=== PATIENT | female | born 1960 | race Caucasian/White ===

== ENCOUNTER 2019-03-06 01:38 | Emergency (ER) | payer BC, OTHER ==
[~2019-03-06] VITALS: Ht 167.6 cm; Wt 95.7 kg
[2019-03-06 01:17] LABS: HEMATOCRIT 42.7 % (36.0-47.0); HEMOGLOBIN 13.4 g/dl (12.0-15.5); MEAN CORPUSCULAR HEMOGLOBIN 29.3 pg (27.0-33.0); MEAN CORPUSCULAR HGB CONC 31.4 g/dl (32.0-36.5); MEAN CORPUSCULAR VOLUME 93.2 fl (80.0-96.0); PLATELET COUNT, AUTOMATED 261 10^3/uL (150-450); RED BLOOD COUNT 4.58 10^6/uL (4.00-5.40)
[~2019-03-06 01:38] MED LIST: KETOROLAC 30 MG/ML VIAL (J1885) IV ONE; NS 1,000 ML IV ONE; ONDANSETRON 4MG/2ML VIAL (J2405) IV ONE
[2019-03-06] MEDS ORDERED: ISOVUE-370 76% 100ML VIAL (Q9967) As Ordered ONE (01:48)
[2019-03-06 02:23] LABS: BILIRUBIN,DIRECT 0.2 MG/DL (0.0-0.2); BILIRUBIN,TOTAL 0.7 MG/DL (0.2-1.0); CALCIUM LEVEL 8.7 MG/DL (8.5-10.1); CREATININE FOR GFR 1.16 MG/DL (0.55-1.30); GLOMERULAR FILTRATION RATE 51.1 (>51); POTASSIUM SERUM 3.4 MEQ/L (3.5-5.1)
--- NOTE | 2019-03-06 03:02 | REPVR ---
PROCEDURE INFORMATION: Exam: CT Abdomen And Pelvis With Contrast Exam date and time: 03/06/2019 2:38 AM Clinical history: 58 years old, female; Abdominal pain; Flank; Left; Additional info: Left flank/abdomen pain TECHNIQUE: Imaging protocol: Computed tomography of the abdomen and pelvis with intravenous contrast. Radiation optimization: All CT scans at this facility use at least one of these dose optimization techniques: automated exposure control; mA and/or kV adjustment per patient size (includes targeted exams where dose is matched to clinical indication); or iterative reconstruction. Contrast material: ISOVUE 370; Contrast volume: 100 ml; Contrast route: IV; COMPARISON: US PELVIC NON-OB COMPLETE 11/29/2012 1:29 AM FINDINGS: Lungs: Linear atelectasis or scarring in the right lower lobe. Bibasilar dependent atelectasis. Mediastinum: Small hiatal hernia. Liver: Mild hepatomegaly and steatosis. Gallbladder and bile ducts: Status post cholecystectomy. Mild intra-and extrahepatic biliary ductal dilatation to the level of an abrupt cut off near the ampulla. Pancreas: Normal. No ductal dilation. Spleen: Complex cystic lesions in the spleen measuring up to 4 cm in diameter. Adrenals: Normal. No mass. Kidneys and ureters: Mild left hydroureteronephrosis to the level of 2 punctate calculi in the left ureterovesicular junction. Extensive stranding of the left perinephric and periureteral fat. Stomach and bowel: Diverticulosis of the colon. No evidence of acute diverticulitis. Appendix: No evidence of appendicitis. Intraperitoneal space: Unremarkable. No free air. No significant fluid collection. Vasculature: Unremarkable. No abdominal aortic aneurysm. Lymph nodes: Unremarkable. No enlarged lymph nodes. Bladder: Unremarkable as visualized. Reproductive: Unremarkable as visualized. Bones/joints: Unremarkable. No acute fracture. Soft tissues: Spiculated soft tissue lesion in the medial left breast measuring approximately 2 cm in diameter. IMPRESSION: 1. Mild left hydroureteronephrosis to the level of 2 punctate calculi in the left ureterovesicular junction. 2. Spiculated soft tissue lesion in the medial left breast measuring approximately 2 cm in diameter. Correlation with mammography and/or breast sonography is suggested. Electronically signed by: William Cano On 03/06/2019 03:01:36 AM
[2019-03-06] MEDS ORDERED: TAMSULOSIN 0.4 MG CAP PO ONE (03:30)
[2019-03-06] MEDS ORDERED: FLOM0.4C39 PO (04:34)
[2019-03-06] MEDS ORDERED: OXYCODONE/APAP 5MG/325MG(BULK FOR ED) 1 TABLET PO ONE (04:45)
[2019-03-06 04:57] VITALS: BP 149/70
== END 2019-03-06 04:58 | disposition home or self-care (01) ==
LOC: M ED 01:38
DX: N20.1 Calculus of ureter (principal); N13.39 Other hydronephrosis; N63.0 Unspecified lump in unspecified breast; R03.0 Elevated blood-pressure reading, without diagnosis of hypertension; R11.10 Vomiting, unspecified
CPT/HCPCS: 74177; 80048; 80076; 81001; 83690; 85025; 87086; 96361; 96374; 96375; 99284; J1885; J2405; Q9967

== ENCOUNTER 2023-03-11 13:31 | Inpatient (IN) | payer OTHER ==
[~2023-03-11] VITALS: Ht 167.6 cm; Wt 65.5 kg
[~2023-03-11 13:31] MED LIST changes: +FLOM0.4C39 PO; -KETOROLAC 30 MG/ML VIAL (J1885) IV ONE; -NS 1,000 ML IV ONE; -ONDANSETRON 4MG/2ML VIAL (J2405) IV ONE
[2023-03-11 14:55] LABS: BASO % 0.6 % (0.0-1.0); EOS % 0.3 % (0.0-3.0); HEMATOCRIT 36.4 % (36.0-47.0); HEMOGLOBIN 11.1 g/dl (12.0-15.5); LYMPH # 0.9 10^3/uL (1.5-5.0); LYMPH % 13.4 % (24.0-44.0); MEAN CORPUSCULAR HEMOGLOBIN 23.7 pg (27.0-33.0); MEAN CORPUSCULAR HGB CONC 30.5 g/dl (32.0-36.5); MEAN CORPUSCULAR VOLUME 77.8 fl (80.0-96.0); MONO # 0.5 10^3/uL (0.0-0.8); MONO % 6.7 % (2.0-8.0); NEUTROPHILS # 5.3 10^3/uL (1.5-8.5); NEUTROPHILS % 77.7 % (36.0-66.0); PLATELET COUNT, AUTOMATED 352 10^3/uL (150-450); RED BLOOD COUNT 4.68 10^6/uL (4.00-5.40); WHITE BLOOD COUNT 6.9 10^3/uL (4.0-10.0)
[2023-03-11 15:09] LABS: PARTIAL THROMBOPLASTIN TIME 28.1 SECONDS (24.8-34.2)
[2023-03-11 15:13] LABS: LIPASE 23 U/L (12-53)
[2023-03-11 15:16] LABS: ALBUMIN 3.3 G/DL (3.2-5.2); ALKALINE PHOSPHATASE 194 U/L (46-116); ALT/SGPT 12 U/L (7.0-40); AST/SGOT 83 U/L (<34); BILIRUBIN,DIRECT 0.7 MG/DL (<0.4); BILIRUBIN,TOTAL 1.7 MG/DL (0.3-1.2); TOTAL PROTEIN 6.4 G/DL (5.7-8.2)
[2023-03-11] MEDS ORDERED: ONDANSETRON 4MG 2ML VIAL IV ONE (15:40)
[2023-03-11] MEDS ORDERED: KETOROLAC 30 MG/ML 1ML VIAL IV ONE (15:40)
[2023-03-11] MEDS ORDERED: NS 1,000 ML IV ONE (15:40)
[2023-03-11 15:57] LABS: INR 1.07; PROTHROMBIN TIME 13.6 SECONDS (12.5-14.5)
[2023-03-11 16:03] LABS: ERYTHROCYTE SEDIMENTATION RATE 52 mm/hr (0-30)
[2023-03-11 16:06] LABS: CK-MB VALUE MASS < 1.0 NG/ML (<3.6)
[2023-03-11 16:07] LABS: CPK CREATINE PHOSPHOKINASE 143 U/L (34-145); MB/CK RELATIVE INDEX 0.69 (< OR =4)
[2023-03-11] MEDS ORDERED: ISOVUE-370 76% 100ML VIAL As Ordered ONE (16:09)
[2023-03-11] MEDS ORDERED: POTASSIUM CHLORIDE 10MEQ SR TABLET PO ONE (16:40)
[2023-03-11 16:51] LABS: MAGNESIUM LEVEL 1.7 MG/DL (1.8-2.4)
[2023-03-11] MEDS ORDERED: KCL 10MEQ/100ML SWI (KRUN) 10 MEQ in IV 1 EA IV ONE (17:00)
[2023-03-11 17:02] LABS: RSV AMPLIFICATION NEGATIVE (NEGATIVE)
[2023-03-11] MEDS ORDERED: MAALOX 30 ML SUSP *UDC PO PRN (18:25)
[2023-03-11] MEDS ORDERED: MED REC IN PROGRESS XX SCH (18:25)
[2023-03-11] MEDS ORDERED: MOM 30ML SUSPENSION UDC PO PRN (18:25)
[2023-03-11] MEDS ORDERED: HOME MED LIST COMPLETE! XX SCH (18:45)
[2023-03-11 19:18] LABS: BLOOD UREA NITROGEN 11 MG/DL (9-23); CALCIUM LEVEL 8.1 MG/DL (8.3-10.6); CARBON DIOXIDE LEVEL 29 MMOL/L (20-31); CHLORIDE LEVEL 101 MMOL/L (98-107); CREATININE FOR GFR 0.63 MG/DL (0.55-1.30); GLOMERULAR FILTRATION RATE > 60.0 (>45); GLUCOSE, FASTING 75 MG/DL (74-106); PHOSPHORUS LEVEL 3.4 MG/DL (2.4-5.1); POTASSIUM SERUM 3.4 MMOL/L (3.5-5.1); SODIUM LEVEL 137 MMOL/L (136-145)
[2023-03-11 20:23] VITALS: BP 154/91; TEMP 98.8; O2SAT 88
[2023-03-11] MEDS: NS 1,000 ML IV SCH (20:57)
[2023-03-11] MEDS ORDERED: MAG SULF 1GM/100ML (MAG RUN) 1 GM in IV 1 EA IV ONE (21:00)
[2023-03-11] MEDS ORDERED: KETOROLAC 30 MG/ML 1ML VIAL IV PRN (21:00)
[2023-03-11] MEDS: MORPHINE 4 MG/ML 1ML VIAL IV PRN (21:18)
[2023-03-11] MEDS: PROMETHAZINE 25MG/ML 1ML VIAL IV PRN (21:19)
[2023-03-11 22:04] VITALS: O2SAT 2
[2023-03-11 22:05] VITALS: O2SAT 96
[2023-03-12 05:00] VITALS: BP 138/75; TEMP 98.6; O2SAT 98
[2023-03-12 06:24] VITALS: O2SAT 86
[2023-03-12 06:30] VITALS: O2SAT 91
[2023-03-12 08:00] VITALS: BP 122/80; TEMP 98.2; O2SAT 98
[2023-03-12] MEDS ORDERED: ENOXAPARIN 30MG/0.3ML SYRINGE (J1650 PER 10MG) SC SCH (09:00)
[2023-03-12 09:23] LABS: BLOOD UREA NITROGEN 9 MG/DL (9-23); CALCIUM LEVEL 8.5 MG/DL (8.3-10.6); CARBON DIOXIDE LEVEL 30 MMOL/L (20-31); CHLORIDE LEVEL 104 MMOL/L (98-107); CREATININE FOR GFR 0.65 MG/DL (0.55-1.30); GLOMERULAR FILTRATION RATE > 60.0 (>45); GLUCOSE, FASTING 80 MG/DL (74-106); POTASSIUM SERUM 3.4 MMOL/L (3.5-5.1); SODIUM LEVEL 144 MMOL/L (136-145)
[2023-03-12] MEDS: NS 1,000 ML IV SCH ×2 (10:40→19:39)
[2023-03-12 14:14] VITALS: BP 135/82; TEMP 98.1; O2SAT 95
[2023-03-12] MEDS ORDERED: KCL 10MEQ/100ML SWI (KRUN) 10 MEQ in IV 1 EA IV ONE (14:45)
[2023-03-12] MEDS ORDERED: INFLUENZA QUADRIVALENT PF VACCINE 0.5ML SYRINGE IM.IMMUN ONE (16:00)
[2023-03-12] MEDS: CEFDINIR 300 MG CAP (OMNICEF) PO SCH (16:40)
[2023-03-12] MEDS ORDERED: ENOXAPARIN 40MG/0.4ML SYRINGE (J1650 PER 10MG) SC SCH (18:00)
[2023-03-12] MEDS: MORPHINE 4 MG/ML 1ML VIAL IV PRN (19:38)
[2023-03-12] MEDS: PROMETHAZINE 25MG/ML 1ML VIAL IV PRN (19:38)
[2023-03-12 19:40] VITALS: BP 143/73; TEMP 99.1; O2SAT 93
[2023-03-13] MEDS: FOLIC ACID 1 MG in NS 50 ML IV SCH (01:31)
[2023-03-13 05:15] VITALS: BP 147/74; TEMP 98.2; O2SAT 92
[2023-03-13 06:19] LABS: BLOOD UREA NITROGEN 8 MG/DL (9-23); CALCIUM LEVEL 8.1 MG/DL (8.3-10.6); CARBON DIOXIDE LEVEL 31 MMOL/L (20-31); CHLORIDE LEVEL 106 MMOL/L (98-107); CREATININE FOR GFR 0.62 MG/DL (0.55-1.30); GLOMERULAR FILTRATION RATE > 60.0 (>45); GLUCOSE, FASTING 93 MG/DL (74-106); MAGNESIUM LEVEL 1.8 MG/DL (1.8-2.4); POTASSIUM SERUM 3.4 MMOL/L (3.5-5.1); SODIUM LEVEL 144 MMOL/L (136-145)
[2023-03-13] MEDS: CEFDINIR 300 MG CAP (OMNICEF) PO SCH (09:16)
[2023-03-13] MEDS: POTASSIUM CHLORIDE 10MEQ SR TABLET PO SCH (09:16)
[2023-03-13] MEDS: MAGNESIUM OXIDE 400MG TAB (MAG-OX) PO SCH ×3 (09:16→19:58)
[2023-03-13 10:07] LABS: HEMATOCRIT 28.6 % (36.0-47.0); HEMOGLOBIN 8.5 g/dl (12.0-15.5); MEAN CORPUSCULAR HEMOGLOBIN 24.6 pg (27.0-33.0); MEAN CORPUSCULAR HGB CONC 29.7 g/dl (32.0-36.5); MEAN CORPUSCULAR VOLUME 82.7 fl (80.0-96.0); PLATELET COUNT, AUTOMATED 232 10^3/uL (150-450); RED BLOOD COUNT 3.46 10^6/uL (4.00-5.40)
[2023-03-13] MEDS: ONDANSETRON 4MG 2ML VIAL IV PRN (12:13)
[2023-03-13 14:00] VITALS: BP 132/73; TEMP 99; O2SAT 91
[2023-03-13] MEDS: ACETAMINOPHEN TAB 650MG DOSE (2X325MG) PO PRN (19:58)
[2023-03-13 20:10] LABS: PERCENT SATURATION 5.9 % (13.2-45.0)
[2023-03-13 20:12] LABS: FERRITIN 52.3 NG/ML (7.3-270.7); FOLATE 3.4 NG/ML (>5.4)
[2023-03-13 21:42] VITALS: BP 131/64; TEMP 97.8; O2SAT 94
[2023-03-13] MEDS ORDERED: FERRIC CARBOXYMALTOSE INJ 750 MG, VIAL MATE ADAPTER 1 EACH in NS 250 ML IV ONE (22:30)
[2023-03-14 05:03] VITALS: BP 159/75; TEMP 97.7; O2SAT 93
[2023-03-14 06:22] LABS: HEMATOCRIT 27.1 % (36.0-47.0); HEMOGLOBIN 8.1 g/dl (12.0-15.5); MEAN CORPUSCULAR HEMOGLOBIN 24.3 pg (27.0-33.0); MEAN CORPUSCULAR HGB CONC 29.9 g/dl (32.0-36.5); MEAN CORPUSCULAR VOLUME 81.1 fl (80.0-96.0); PLATELET COUNT, AUTOMATED 226 10^3/uL (150-450); RED BLOOD COUNT 3.34 10^6/uL (4.00-5.40); WHITE BLOOD COUNT 4.2 10^3/uL (4.0-10.0)
[2023-03-14 06:45] LABS: BLOOD UREA NITROGEN 8 MG/DL (9-23); CALCIUM LEVEL 8.6 MG/DL (8.3-10.6); CARBON DIOXIDE LEVEL 30 MMOL/L (20-31); CHLORIDE LEVEL 107 MMOL/L (98-107); CREATININE FOR GFR 0.57 MG/DL (0.55-1.30); GLOMERULAR FILTRATION RATE > 60.0 (>45); GLUCOSE, FASTING 83 MG/DL (74-106); POTASSIUM SERUM 3.8 MMOL/L (3.5-5.1); SODIUM LEVEL 145 MMOL/L (136-145)
[2023-03-14] MEDS: MAGNESIUM OXIDE 400MG TAB (MAG-OX) PO SCH ×3 (09:27→22:34)
[2023-03-14] MEDS: CEFDINIR 300 MG CAP (OMNICEF) PO SCH (09:27)
[2023-03-14] MEDS: POTASSIUM CHLORIDE 10MEQ SR TABLET PO SCH (09:27)
[2023-03-14 09:40] VITALS: O2SAT 92
[2023-03-14 14:23] VITALS: BP 164/92; TEMP 99.3; O2SAT 88
[2023-03-14 16:06] VITALS: BP 145/69
[2023-03-14 22:00] VITALS: BP 156/74; TEMP 98.2; O2SAT 92
[2023-03-14] MEDS: FOLIC ACID 1 MG in NS 50 ML IV SCH (22:35)
[2023-03-15 05:41] VITALS: BP 147/69; TEMP 97.3; O2SAT 94
[2023-03-15 06:14] LABS: HEMATOCRIT 25.9 % (36.0-47.0); HEMOGLOBIN 7.8 g/dl (12.0-15.5); MEAN CORPUSCULAR HEMOGLOBIN 24.4 pg (27.0-33.0); MEAN CORPUSCULAR HGB CONC 30.1 g/dl (32.0-36.5); MEAN CORPUSCULAR VOLUME 80.9 fl (80.0-96.0); PLATELET COUNT, AUTOMATED 251 10^3/uL (150-450); WHITE BLOOD COUNT 4.1 10^3/uL (4.0-10.0)
[2023-03-15 06:46] LABS: BLOOD UREA NITROGEN 8 MG/DL (9-23); CALCIUM LEVEL 8.5 MG/DL (8.3-10.6); CARBON DIOXIDE LEVEL 31 MMOL/L (20-31); CHLORIDE LEVEL 109 MMOL/L (98-107); CREATININE FOR GFR 0.55 MG/DL (0.55-1.30); GLOMERULAR FILTRATION RATE > 60.0 (>45); GLUCOSE, FASTING 80 MG/DL (74-106); SODIUM LEVEL 148 MMOL/L (136-145)
[2023-03-15] MEDS: CEFDINIR 300 MG CAP (OMNICEF) PO SCH (08:57)
[2023-03-15] MEDS: MAGNESIUM OXIDE 400MG TAB (MAG-OX) PO SCH ×3 (08:57→21:56)
[2023-03-15] MEDS: POTASSIUM CHLORIDE 10MEQ SR TABLET PO SCH (08:57)
[2023-03-15] MEDS: PRENATAL VITAMINS CHEWABLE TABLET PO SCH (08:57)
[2023-03-15 14:52] VITALS: BP 144/70; TEMP 99; O2SAT 88
[2023-03-15 15:01] VITALS: O2SAT 90
[2023-03-15 20:00] VITALS: BP 144/71; TEMP 99; O2SAT 93
[2023-03-15] MEDS: FOLIC ACID 1 MG in NS 50 ML IV SCH (21:56)
[2023-03-16 06:00] VITALS: BP 154/85; TEMP 98.8; O2SAT 91
[2023-03-16 06:39] LABS: HEMATOCRIT 27.4 % (36.0-47.0); HEMOGLOBIN 8.2 g/dl (12.0-15.5); MEAN CORPUSCULAR HEMOGLOBIN 24.4 pg (27.0-33.0); MEAN CORPUSCULAR HGB CONC 29.9 g/dl (32.0-36.5); MEAN CORPUSCULAR VOLUME 81.5 fl (80.0-96.0); PLATELET COUNT, AUTOMATED 254 10^3/uL (150-450); RED BLOOD COUNT 3.36 10^6/uL (4.00-5.40); WHITE BLOOD COUNT 4.4 10^3/uL (4.0-10.0)
[2023-03-16 07:11] LABS: BLOOD UREA NITROGEN 6 MG/DL (9-23); CALCIUM LEVEL 8.6 MG/DL (8.3-10.6); CARBON DIOXIDE LEVEL 29 MMOL/L (20-31); CHLORIDE LEVEL 108 MMOL/L (98-107); CREATININE FOR GFR 0.56 MG/DL (0.55-1.30); GLOMERULAR FILTRATION RATE > 60.0 (>45); GLUCOSE, FASTING 78 MG/DL (74-106); POTASSIUM SERUM 4.4 MMOL/L (3.5-5.1); SODIUM LEVEL 142 MMOL/L (136-145)
[2023-03-16] MEDS ORDERED: IPRATROPIUM 0.5MG/ALBUTEROL 2.5MG INH SOL UD 3ML (DUONEB) NEB PRN (08:40)
[2023-03-16] MEDS: PRENATAL VITAMINS CHEWABLE TABLET PO SCH (11:31)
[2023-03-16] MEDS: MAGNESIUM OXIDE 400MG TAB (MAG-OX) PO SCH ×3 (11:31→20:37)
[2023-03-16] MEDS: POTASSIUM CHLORIDE 10MEQ SR TABLET PO SCH (11:31)
[2023-03-16 14:00] VITALS: BP 143/78; TEMP 98.1; O2SAT 94
[2023-03-16 20:29] VITALS: BP 146/79; TEMP 99; O2SAT 94
[2023-03-16] MEDS: FOLIC ACID 1 MG in NS 50 ML IV SCH (23:44)
[2023-03-17 05:18] VITALS: BP 153/82; TEMP 98.6; O2SAT 96
[2023-03-17 06:07] LABS: HEMATOCRIT 28.5 % (36.0-47.0); HEMOGLOBIN 8.5 g/dl (12.0-15.5); MEAN CORPUSCULAR HEMOGLOBIN 24.1 pg (27.0-33.0); MEAN CORPUSCULAR HGB CONC 29.8 g/dl (32.0-36.5); PLATELET COUNT, AUTOMATED 316 10^3/uL (150-450); RED BLOOD COUNT 3.52 10^6/uL (4.00-5.40); WHITE BLOOD COUNT 4.9 10^3/uL (4.0-10.0)
[2023-03-17 06:42] LABS: BLOOD UREA NITROGEN < 5 MG/DL (9-23); CALCIUM LEVEL 8.6 MG/DL (8.3-10.6); CARBON DIOXIDE LEVEL 27 MMOL/L (20-31); CHLORIDE LEVEL 106 MMOL/L (98-107); CREATININE FOR GFR 0.59 MG/DL (0.55-1.30); GLOMERULAR FILTRATION RATE > 60.0 (>45); GLUCOSE, FASTING 80 MG/DL (74-106); POTASSIUM SERUM 4.4 MMOL/L (3.5-5.1); SODIUM LEVEL 140 MMOL/L (136-145)
[2023-03-17] MEDS: POTASSIUM CHLORIDE 10MEQ SR TABLET PO SCH (08:28)
[2023-03-17] MEDS: PRENATAL VITAMINS CHEWABLE TABLET PO SCH (08:41)
[2023-03-17 09:01] VITALS: BP_SYST 124; BP_SYST 142; BP_DIAS 78; BP_DIAS 83; TEMP 98.2; O2SAT 97
[2023-03-17 14:00] VITALS: BP 155/78; TEMP 98.2; O2SAT 94
[2023-03-17 20:34] VITALS: BP 155/80; TEMP 98.6; O2SAT 98
[2023-03-17] MEDS: ONDANSETRON 4MG 2ML VIAL IV PRN (21:13)
[2023-03-17] MEDS: FOLIC ACID 1 MG in NS 50 ML IV SCH (22:39)
[2023-03-17] MEDS ORDERED: MORPHINE 2 MG/ML 1ML VIAL IV ONE (23:15)
[2023-03-17 23:26] VITALS: O2SAT 96
[2023-03-18 05:09] VITALS: BP 151/83; TEMP 98.8; O2SAT 92
[2023-03-18 06:01] LABS: HEMATOCRIT 28.1 % (36.0-47.0); HEMOGLOBIN 8.5 g/dl (12.0-15.5); MEAN CORPUSCULAR HEMOGLOBIN 24.8 pg (27.0-33.0); MEAN CORPUSCULAR HGB CONC 30.2 g/dl (32.0-36.5); MEAN CORPUSCULAR VOLUME 81.9 fl (80.0-96.0); PLATELET COUNT, AUTOMATED 330 10^3/uL (150-450); RED BLOOD COUNT 3.43 10^6/uL (4.00-5.40); WHITE BLOOD COUNT 5.7 10^3/uL (4.0-10.0)
[2023-03-18 06:22] LABS: BLOOD UREA NITROGEN 5 MG/DL (9-23); CALCIUM LEVEL 8.6 MG/DL (8.3-10.6); CARBON DIOXIDE LEVEL 26 MMOL/L (20-31); CHLORIDE LEVEL 106 MMOL/L (98-107); CREATININE FOR GFR 0.65 MG/DL (0.55-1.30); GLOMERULAR FILTRATION RATE > 60.0 (>45); GLUCOSE, FASTING 76 MG/DL (74-106); POTASSIUM SERUM 4.4 MMOL/L (3.5-5.1); SODIUM LEVEL 139 MMOL/L (136-145)
[2023-03-18] MEDS: PRENATAL VITAMINS CHEWABLE TABLET PO SCH (08:42)
[2023-03-18] MEDS: POTASSIUM CHLORIDE 10MEQ SR TABLET PO SCH (08:42)
[2023-03-18 14:00] VITALS: BP 150/80; TEMP 98.6; O2SAT 94
[2023-03-18] MEDS: ONDANSETRON 4MG 2ML VIAL IV PRN (14:39)
[2023-03-18] MEDS: FOLIC ACID 1MG TAB PO SCH (15:32)
[2023-03-18] MEDS: PROMETHAZINE 25MG/ML 1ML VIAL IV PRN (19:19)
[2023-03-18] MEDS: ACETAMINOPHEN TAB 650MG DOSE (2X325MG) PO PRN (19:20)
[2023-03-18 19:27] VITALS: BP 157/88; TEMP 99.1; O2SAT 94
[2023-03-18 19:30] VITALS: BP 140/72
[2023-03-19 05:00] VITALS: BP 152/86; TEMP 98.1; O2SAT 93
[2023-03-19 05:46] LABS: HEMATOCRIT 29.5 % (36.0-47.0); HEMOGLOBIN 8.9 g/dl (12.0-15.5); MEAN CORPUSCULAR HEMOGLOBIN 24.8 pg (27.0-33.0); MEAN CORPUSCULAR HGB CONC 30.2 g/dl (32.0-36.5); MEAN CORPUSCULAR VOLUME 82.2 fl (80.0-96.0); PLATELET COUNT, AUTOMATED 324 10^3/uL (150-450); RED BLOOD COUNT 3.59 10^6/uL (4.00-5.40); WHITE BLOOD COUNT 5.3 10^3/uL (4.0-10.0)
[2023-03-19 06:09] LABS: BLOOD UREA NITROGEN 6 MG/DL (9-23); CALCIUM LEVEL 8.7 MG/DL (8.3-10.6); CARBON DIOXIDE LEVEL 27 MMOL/L (20-31); CHLORIDE LEVEL 107 MMOL/L (98-107); CREATININE FOR GFR 0.63 MG/DL (0.55-1.30); GLOMERULAR FILTRATION RATE > 60.0 (>45); GLUCOSE, FASTING 79 MG/DL (74-106); POTASSIUM SERUM 4.1 MMOL/L (3.5-5.1); SODIUM LEVEL 141 MMOL/L (136-145)
[2023-03-19] MEDS: PRENATAL VITAMINS CHEWABLE TABLET PO SCH (08:18)
[2023-03-19] MEDS: FOLIC ACID 1MG TAB PO SCH (08:18)
[2023-03-19] MEDS: POTASSIUM CHLORIDE 10MEQ SR TABLET PO SCH (08:18)
[2023-03-19] MEDS: ONDANSETRON 4MG 2ML VIAL IV PRN (10:06)
[2023-03-19] MEDS: PROMETHAZINE 25MG/ML 1ML VIAL IV PRN (12:46)
[2023-03-19 14:00] VITALS: BP 157/82; TEMP 99; O2SAT 95
[2023-03-19 19:36] VITALS: BP 140/71; TEMP 99; O2SAT 91
[2023-03-19] MEDS ORDERED: traMADol 50 MG TAB PO PRN (22:40)
[2023-03-20 05:23] VITALS: BP 159/85; TEMP 98.6; O2SAT 92
[2023-03-20] MEDS: POTASSIUM CHLORIDE 10MEQ SR TABLET PO SCH (08:31)
[2023-03-20] MEDS: PRENATAL VITAMINS CHEWABLE TABLET PO SCH (08:31)
[2023-03-20] MEDS: FOLIC ACID 1MG TAB PO SCH (08:32)
[2023-03-20] MEDS ORDERED: ASCORBIC ACID 500 MG TAB PO SCH (09:00)
[2023-03-20] MEDS ORDERED: FERROUS SULFATE 325MG TAB PO SCH (09:00)
[2023-03-20] MEDS ORDERED: SENOKOT S TAB PO SCH (09:00)
[2023-03-20] MEDS ORDERED: VITA100065 PO (09:05)
[2023-03-20] MEDS ORDERED: MIRA3350 PO (09:05)
[2023-03-20] MEDS ORDERED: IRON1TAB2 PO (09:05)
[2023-03-20] MEDS ORDERED: FOLI1TAB11 PO (09:05)
[2023-03-20] MEDS ORDERED: SENO8.6T10 PO (09:05)
[2023-03-20] MEDS ORDERED: PERC5TAB12 PO (09:05)
[2023-03-20] MEDS ORDERED: TRAM50TA2 PO (09:05)
[2023-03-20] MEDS ORDERED: MIRALAX *UNIT DOSE* 17GM PACKET PO PRN (09:10)
[2023-03-20 09:30] LABS: HEMATOCRIT 32.2 % (36.0-47.0); HEMOGLOBIN 9.8 g/dl (12.0-15.5)
[2023-03-20] MEDS: ONDANSETRON 4MG 2ML VIAL IV PRN (13:22)
[2023-03-20 14:00] VITALS: BP 167/89; TEMP 98.6; O2SAT 91
[2023-03-24] MEDS ORDERED: ONDA-83 PO (14:23)
[2023-03-24] MEDS ORDERED: PROC10TA5 PO (14:23)
[2023-03-30] MEDS ORDERED: OLAN1TAB16 PO (14:42)
== END 2023-03-20 17:25 | disposition home or self-care (01) | DRG 382 ==
LOC: M ED 13:31 → M ED INP 18:22 → M MSPAV 20:24
PROVIDERS: ADMIT Student in an Organized Health Care Education/Training Program; ATTEND General Practice
PROC: 0HBU3ZX Excision of Left Breast, Percutaneous Approach, Diagnostic (ICD-10-PCS; principal; 2023-03-13)
DX: C50.912 Malignant neoplasm of unspecified site of left female breast (principal); J91.0 Malignant pleural effusion; C78.01 Secondary malignant neoplasm of right lung; C78.02 Secondary malignant neoplasm of left lung; C77.1 Secondary and unspecified malignant neoplasm of intrathoracic lymph nodes; E83.42 Hypomagnesemia; C77.3 Secondary and unspecified malignant neoplasm of axilla and upper limb lymph nodes; C79.51 Secondary malignant neoplasm of bone; D62 Acute posthemorrhagic anemia; E87.6 Hypokalemia; N39.0 Urinary tract infection, site not specified; R11.2 Nausea with vomiting, unspecified; R63.4 Abnormal weight loss; R09.02 Hypoxemia; Z17.0 Estrogen receptor positive status [ER+]

== ENCOUNTER → 2023-04-02 | Outpatient (RCR) | payer OTHER ==
[~2023-04-02] MED LIST changes: +ANAS1TAB2 PO; +FOLI1TAB11 PO; +IRON1TAB2 PO; +METR0.7526 TOP; +MIRA3350 PO; +OLAN1TAB16 PO; +ONDA-83 PO; +ONDANSETRON 4MG ORAL DISINTEGRATING TAB PO ONE; +PERC5TAB12 PO; +PROC10TA5 PO; +SENO8.6T10 PO; +TRAM50TA2 PO; +VERZ150T PO; +VITA100065 PO
== END ==
LOC: M ONCR 03-13 15:44
PROVIDERS: ATTEND General Practice
DX: Z51.0 Encounter for antineoplastic radiation therapy (principal); C50.112 Malignant neoplasm of central portion of left female breast

== ENCOUNTER → 2023-04-20 | Outpatient (CLI) | payer OTHER ==
[~2023-04-20] MED LIST changes: +FERR1TAB8 PO; -ONDANSETRON 4MG ORAL DISINTEGRATING TAB PO ONE; +POTA10CA60 PO
== END ==
LOC: M WHC 08:54
PROVIDERS: ATTEND Specialist
DX: M85.851 Other specified disorders of bone density and structure, right thigh (principal); M85.852 Other specified disorders of bone density and structure, left thigh; M85.88 Other specified disorders of bone density and structure, other site; C50.919 Malignant neoplasm of unspecified site of unspecified female breast

== ENCOUNTER → 2023-04-21 | Outpatient (CLI) | payer OTHER | LOC: M ONCM 07:29 | PROVIDERS: ATTEND Dietitian, Registered | DX: C50.912 Malignant neoplasm of unspecified site of left female breast (principal); C78.01 Secondary malignant neoplasm of right lung; C78.02 Secondary malignant neoplasm of left lung; C79.51 Secondary malignant neoplasm of bone; Z68.21 Body mass index [BMI] 21.0-21.9, adult; Z71.3 Dietary counseling and surveillance ==

== ENCOUNTER 2023-05-01 12:16 | Emergency (ER) | payer OTHER ==
[~2023-05-01] VITALS: Ht 162.6 cm; Wt 57.5 kg
[2023-05-01 13:55] LABS: BASO % 1.4 % (0.0-1.0); EOS # 0.1 10^3/uL (0.0-0.5); EOS % 2.3 % (0.0-3.0); HEMATOCRIT 34.1 % (36.0-47.0); HEMOGLOBIN 10.7 g/dl (12.0-15.5); LYMPH # 0.5 10^3/uL (1.5-5.0); LYMPH % 22.2 % (24.0-44.0); MEAN CORPUSCULAR HEMOGLOBIN 27.7 pg (27.0-33.0); MEAN CORPUSCULAR HGB CONC 31.4 g/dl (32.0-36.5); MEAN CORPUSCULAR VOLUME 88.3 fl (80.0-96.0); MONO # 0.1 10^3/uL (0.0-0.8); MONO % 4.6 % (2.0-8.0); NEUTROPHILS # 1.5 10^3/uL (1.5-8.5); NEUTROPHILS % 68.6 % (36.0-66.0); PLATELET COUNT, AUTOMATED 173 10^3/uL (150-450); RED BLOOD COUNT 3.86 10^6/uL (4.00-5.40); WHITE BLOOD COUNT 2.2 10^3/uL (4.0-10.0)
[2023-05-01 14:15] LABS: ALBUMIN 3.2 G/DL (3.2-5.2); ALKALINE PHOSPHATASE 773 U/L (46-116); ALT/SGPT 13 U/L (7.0-40); AST/SGOT 14 U/L (<34); BILIRUBIN,DIRECT 0.5 MG/DL (<0.4); BILIRUBIN,TOTAL 1.3 MG/DL (0.3-1.2); BLOOD UREA NITROGEN 14 MG/DL (9-23); CALCIUM LEVEL 8.6 MG/DL (8.3-10.6); CARBON DIOXIDE LEVEL 27 MMOL/L (20-31); CHLORIDE LEVEL 104 MMOL/L (98-107); CPK CREATINE PHOSPHOKINASE 61 U/L (34-145); CREATININE FOR GFR 0.95 MG/DL (0.55-1.30); GLOMERULAR FILTRATION RATE > 60.0 (>45); GLUCOSE, FASTING 78 MG/DL (74-106); POTASSIUM SERUM 3.4 MMOL/L (3.5-5.1); SODIUM LEVEL 141 MMOL/L (136-145); TOTAL PROTEIN 5.9 G/DL (5.7-8.2)
[2023-05-01 14:16] LABS: CK-MB VALUE MASS < 1.0 NG/ML (<3.6); MB/CK RELATIVE INDEX 1.63 (< OR =4)
[2023-05-01 14:20] LABS: INR 1.23; PROTHROMBIN TIME 15.1 SECONDS (12.5-14.5); THYROID STIMULATING HORMONE 1.161 uIU/ML (0.55-4.78); THYROXINE (T4) 10.5 UG/DL (4.5-10.9)
[2023-05-01] MEDS ORDERED: ISOVUE-370 76% 100ML VIAL As Ordered ONE (14:40)
[2023-05-01 15:02] LABS: LIPASE 15 U/L (12-53)
[2023-05-01] MEDS: NS 1,000 ML IV SCH (19:23)
[2023-05-02] MEDS: NS 1,000 ML IV SCH (01:40)
[2023-05-02] MEDS ORDERED: LR 1,000 ML IV SCH (11:40)
[2023-05-02 16:36] VITALS: BP 135/63; TEMP 98.2; O2SAT 96
== END 2023-05-02 16:59 | disposition short-term general hospital (02) ==
LOC: M ED 12:16
DX: C50.919 Malignant neoplasm of unspecified site of unspecified female breast (principal); C78.00 Secondary malignant neoplasm of unspecified lung; J91.8 Pleural effusion in other conditions classified elsewhere; G40.909 Epilepsy, unspecified, not intractable, without status epilepticus; Z87.442 Personal history of urinary calculi; K83.8 Other specified diseases of biliary tract; Z79.899 Other long term (current) drug therapy
CPT/HCPCS: 71045; 71275; 74177; 74181; 80048; 80076; 82550; 82553; 83690; 83880; 84436; 84443; 85025; 85610; 87040; 87486; 87581; 87633; 87798; 93005; 93041; 94760; 96360; 96361; 99285; Q9967